=== PATIENT | male | born 1990 | race Caucasian/White ===

== ENCOUNTER 2017-07-06 22:36 | Emergency (ER) | payer MEDICAID ==
[~2017-07-06] VITALS: Ht 165.1 cm; Wt 53.6 kg
[~2017-07-06 22:36] MED LIST: CHLO25CA10 PO; CLIN-80 PO; LORA-269 PO; LORA1TAB PO; OMEP40CA37 PO; ONDA4TAB12 PO
[2017-07-06] MEDS ORDERED: LORazepam 1 MG tablet PO ONE (23:40)
[2017-07-06] MEDS ORDERED: HYDROcodone/acetaminophen 10/325mg tab PO ONE (23:40)
[2017-07-06] MEDS ORDERED: TETanus/Pertussis (Acell)/Diphther VAC/PF (Tdap-Adult) 0.5ml syringe IM ONE (23:40)
[2017-07-06] MEDS ORDERED: BUPIVAcaine/PF 2.5 mg/ml (0.25%) 30ml vial IJ ONE (23:40)
[2017-07-07] MEDS ORDERED: CEPH-572 PO (00:08)
[2017-07-07] MEDS ORDERED: SULF1TAB49 PO (00:08)
[2017-07-07] MEDS ORDERED: HYDR-569 PO (00:09)
[2017-07-07 00:30] VITALS: BP 116/66
== END 2017-07-07 00:32 | disposition home or self-care (01) ==
LOC: ER 22:37
DX: L02.413 Cutaneous abscess of right upper limb (principal); L03.113 Cellulitis of right upper limb; G89.29 Other chronic pain; F17.200 Nicotine dependence, unspecified, uncomplicated; F12.10 Cannabis abuse, uncomplicated; F11.10 Opioid abuse, uncomplicated; Z79.899 Other long term (current) drug therapy
CPT/HCPCS: 10060; 90471; 90715; 99283; A6449; J3490

== ENCOUNTER 2019-08-12 23:27 | Emergency (ER) | payer MEDICAID ==
[~2019-08-12] VITALS: Ht 165.1 cm; Wt 54.0 kg
[~2019-08-12 23:27] MED LIST changes: -CLIN-80 PO; +CLIN-97 PO; +HYDR-4383 PO; +OMEP40CA13 PO; -OMEP40CA37 PO
--- NOTE | 2019-08-13 00:10 | NUR ---
pt in room, room stripped, belonginigs inventoried by [employer], pt mumbling in the room and talking to himself.
[2019-08-13 00:21] LABS: BASOPHILS # (AUTO) 0.2 X10'3 (0-0.2); BASOPHILS % (AUTO) 1.3 % (0-1); EOSINOPHILS # (AUTO) 0.1 X10'3 (0-0.9); EOSINOPHILS % (AUTO) 0.3 % (0-6); HEMATOCRIT 45.9 % (42.0-52.0); HEMOGLOBIN 15.7 g/dl (14.0-17.9); LYMPHOCYTES # (AUTO) 4.3 X10'3 (1.1-4.8); LYMPHOCYTES % (AUTO) 26.3 % (21-51); MEAN CORPUSCULAR HEMOGLOBIN 29.4 PG (27.0-31.0); MEAN CORPUSCULAR HGB CONC 34.2 g/dL (33.0-36.5); MEAN CORPUSCULAR VOLUME 85.9 FL (78-98); MEAN PLATELET VOLUME 6.9 FL (7.4-10.4); MONOCYTES # (AUTO) 0.8 X10'3 (0-0.9); NEUTROPHILS # (AUTO) 10.9 X10'3 (1.8-7.7); NEUTROPHILS % (AUTO) 67.1 % (42-75); PLATELET COUNT 472 X10'3 (140-440); RED BLOOD COUNT 5.34 X10'6 (4.70-6.10); RED CELL DISTRIBUTION WIDTH 12.3 % (11.5-14.5); WHITE BLOOD COUNT 16.3 X10'3 (4.5-11.0)
[2019-08-13] MEDS ORDERED: LORazepam 1 MG tablet PO ONE (00:25)
[2019-08-13 00:33] LABS: ALANINE AMINOTRANSFERASE 31 U/L (12-78); ALBUMIN 4.7 G/DL (3.4-5.0); ALBUMIN/GLOBULIN RATIO 1.4 (1.1-1.5); ALKALINE PHOSPHATASE 85 IU/L (46-116); ANION GAP 11 (8-16); ASPARTATE AMINO TRANSFERASE 29 U/L (10-37); BILIRUBIN,TOTAL 0.8 MG/DL (0.1-1.0); BLOOD UREA NITROGEN 22 MG/DL (7-18); BUN/CREATININE RATIO 18.5 (5.4-32.0); CALCIUM 9.5 MG/DL (8.5-10.1); CHLORIDE 102 MMOL/L (99-107); CREATININE 1.19 MG/DL (0.60-1.10); ETHANOL < 0.010 GM/DL (0.0-0.010); GLUCOSE 116 MG/DL (70-104); POTASSIUM 4.1 MMOL/L (3.5-5.1); SODIUM 138 MMOL/L (135-145); TOTAL CARBON DIOXIDE 24.9 MMOL/L (24-32); TOTAL PROTEIN 8.1 G/DL (6.4-8.2); eGFR 73 ML/MIN
--- NOTE | 2019-08-13 01:28 | NUR ---
PT CONTINUES TO MUMBLE AND CANNOT HOLD CONVERSATION IS TANGENTAL. PT GIVEN ATIVAN 2 MG TABS, TOOK ONE FO THE TABS OUT OF THE PILL CUP AND STATED "I'LL JUST TAKE ONE". THEN TOOK THE ONE PILL AND MADE MULTIPLE ATTEMPTS TO PUT IN HIS MOUTH, THEN STARED AT THE PILL ASKING IF THIS IS REALLY ATIVAN...DOES NOT LOOK LIKE THE REGULAR ATIVAN, THEN TOOK THE PILL AND CRUSHED IT ROLLING INTO HIS FINGERS . PT THEN ASKED TO WASH HIS HANDS. 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
--- NOTE | 2019-08-13 01:40 | NUR ---
PT OPENED UP HIS DOOR AND WAS ARGUMENTATIVE WITH ME IN REGARDS WITH WHY HE WAS ON A 5150 AND IF HE COULD JUST WALK OUT. SECURITY CAME AND ASKED PATIENT TO GET BACK INTO BED. I WENT AND GOT HIM A WARM BLANKET. HE COMPLIED
--- NOTE | 2019-08-13 01:50 | NUR ---
DR. GREGORIO UPDATED OF ABOVE NOTE AND THAT PT HAS YET TO ATTEMPT TO VOID. REPORTS NO NEED AT THIS TIME TO STRAIGHT CATH PT AND TO HAVE PT DRINK WATER AND THAT ONCE URINIE OBTAINED HE MAY ORDER MEDS TO HELP HIM SLEEP
--- NOTE | 2019-08-13 03:00 | NUR ---
DR. GREGORIO AT BEDSIDE TELLING PT TO DRINK WATER, PT DRANK APROX 300 CCS. PT REQUEST FOOD . EXPLAIND THAT WE NEED THE URINE SAMPLE ERIC AND THEN WE WILL PROVIDE HIM FOOD.
[2019-08-13] MEDS ORDERED: UNABLE TO OBTAIN (04:11)
--- NOTE | 2019-08-13 05:20 | NUR ---
PT AWAKENED BY DR GREGORIO AND TOLD TO TRY AND VOID IN URINAL. PT ABLE TO VOID 300 CC'S AND URINE SENT TO LAB
[2019-08-13 05:42] LABS: URINE AMPHETAMINE SCREEN POSITIVE (Neg); URINE BARBITUATE SCREEN NEGATIVE (Neg); URINE BENZODIAZEPINES SCREEN NEGATIVE (Neg); URINE CANNABINOID SCREEN POSITIVE (Neg); URINE COCAINE SCREEN NEGATIVE (Neg); URINE METHADONE SCREEN NEGATIVE (Neg); URINE OPIATE SCREEN NEGATIVE (Neg); URINE PHENCYCLIDINE SCREEN NEGATIVE (Neg)
--- NOTE | 2019-08-13 10:30 | NUR ---
PT RESTING ON RIGHT SIDE NO S/S OF RESPIRATORY DISTRESS
[2019-08-13 12:42] VITALS: BP 124/69
== END 2019-08-13 12:44 | disposition home or self-care (01) ==
LOC: ER 23:28
DX: F15.159 Other stimulant abuse with stimulant-induced psychotic disorder, unspecified (principal); G89.29 Other chronic pain; F41.9 Anxiety disorder, unspecified; F32.9 Major depressive disorder, single episode, unspecified; F11.90 Opioid use, unspecified, uncomplicated; F12.90 Cannabis use, unspecified, uncomplicated; F17.210 Nicotine dependence, cigarettes, uncomplicated; Z79.2 Long term (current) use of antibiotics; Z79.899 Other long term (current) drug therapy
CPT/HCPCS: 36415; 80053; 80305; 80320; 85025; 99285

== ENCOUNTER 2019-10-01 19:30 | Emergency (ER) | payer MEDICAID ==
[~2019-10-01] VITALS: Ht 170.2 cm; Wt 50.0 kg
[~2019-10-01 19:30] MED LIST changes: +UNABLE TO OBTAIN
[2019-10-01 20:28] VITALS: BP 128/72
== END 2019-10-01 20:58 ==
LOC: ER 19:30
DX: M25.571 Pain in right ankle and joints of right foot (principal); G89.29 Other chronic pain; F41.9 Anxiety disorder, unspecified; F32.9 Major depressive disorder, single episode, unspecified; F12.90 Cannabis use, unspecified, uncomplicated; F11.90 Opioid use, unspecified, uncomplicated; Z79.2 Long term (current) use of antibiotics; Z79.899 Other long term (current) drug therapy
CPT/HCPCS: 29515; 70450; 73610; 99284

== ENCOUNTER 2021-08-03 11:18 | Emergency (ER) | payer MEDICAID ==
[~2021-08-03] VITALS: Ht 162.6 cm; Wt 59.1 kg
[~2021-08-03 11:18] MED LIST changes: -OMEP40CA13 PO; +OMEP40CA21 PO
--- NOTE | 2021-08-03 11:55 | NUR ---
First contact with patient. Patient laying supine in bed, pt. reports having anxiety. Recently started abilify one week ago and states that he is unsure if medication may be causing anxiety. Vistor at bedside. No distress, awaiting provider eval.
--- NOTE | 2021-08-03 12:26 | NUR ---
Provider at bedside.
[2021-08-03] MEDS ORDERED: LORazepam 1 MG tablet PO ONE (12:35)
[2021-08-03 13:18] VITALS: BP 134/88
== END 2021-08-03 13:19 | disposition home or self-care (01) ==
LOC: ER 11:18
DX: F41.9 Anxiety disorder, unspecified (principal); G89.29 Other chronic pain; M54.9 Dorsalgia, unspecified; F32.9 Major depressive disorder, single episode, unspecified; F12.10 Cannabis abuse, uncomplicated; F15.10 Other stimulant abuse, uncomplicated; F11.10 Opioid abuse, uncomplicated
CPT/HCPCS: 99283

== ENCOUNTER 2022-10-13 23:50 | Emergency (ER) | payer MEDICAID ==
[~2022-10-13] VITALS: Ht 165.1 cm; Wt 59.1 kg
[2022-10-14 00:04] VITALS: BP 136/96
[2022-10-14 00:11] LABS: BASOPHILS % (AUTO) 0.6 % (0-1); EOSINOPHILS # (AUTO) 0.1 X10'3 (0-0.9); HEMATOCRIT 43.9 % (42.0-52.0); LYMPHOCYTES % (AUTO) 39.6 % (21-51); MEAN CORPUSCULAR HEMOGLOBIN 29.2 PG (27.0-31.0); MEAN CORPUSCULAR HGB CONC 34.1 g/dL (33.0-36.5); MEAN CORPUSCULAR VOLUME 85.6 FL (78-98); MEAN PLATELET VOLUME 6.6 FL (7.4-10.4); MONOCYTES # (AUTO) 0.4 X10'3 (0-0.9); NEUTROPHILS # (AUTO) 4.1 X10'3 (1.8-7.7); NEUTROPHILS % (AUTO) 53.8 % (42-75); PLATELET COUNT 319 X10'3 (140-440); RED BLOOD COUNT 5.13 X10'6 (4.70-6.10); RED CELL DISTRIBUTION WIDTH 12.3 % (11.5-14.5); WHITE BLOOD COUNT 7.6 X10'3 (4.5-11.0)
[2022-10-14 00:29] LABS: ALANINE AMINOTRANSFERASE 29 U/L (12-78); ALBUMIN/GLOBULIN RATIO 1.9 (1.1-1.5); ALKALINE PHOSPHATASE 86 IU/L (46-116); ANION GAP 11 (8-16); ASPARTATE AMINO TRANSFERASE 21 U/L (10-37); BILIRUBIN,TOTAL 0.6 MG/DL (0.1-1.0); BLOOD UREA NITROGEN 15 MG/DL (7-18); BUN/CREATININE RATIO 14.6 (10.0-20.0); CALCIUM 9.2 MG/DL (8.5-10.1); CHLORIDE 104 MMOL/L (99-107); CREATININE 1.03 MG/DL (0.60-1.10); GLUCOSE 112 MG/DL (70-104); POTASSIUM 3.3 MMOL/L (3.5-5.1); SODIUM 141 MMOL/L (135-145); TOTAL CARBON DIOXIDE 26.1 MMOL/L (24-32); TOTAL PROTEIN 7.7 G/DL (6.4-8.2); eGFR 84 ML/MIN
[2022-10-14 00:35] LABS: MAGNESIUM 2.2 MG/DL (1.5-2.4)
== END 2022-10-14 01:44 | disposition home or self-care (01) ==
LOC: ER 23:50
DX: R07.89 Other chest pain (principal); R06.02 Shortness of breath; F17.210 Nicotine dependence, cigarettes, uncomplicated; F12.90 Cannabis use, unspecified, uncomplicated; F15.20 Other stimulant dependence, uncomplicated
CPT/HCPCS: 36415; 71045; 80053; 83735; 83880; 84484; 85025; 93005; 99285